=== PATIENT | female | born 1945 | race Caucasian/White ===

== ENCOUNTER 2023-09-29 10:16 | Inpatient (IN) ==
[2023-09-29] MEDS ORDERED: IOPAMIDOL 100 ML BOTTLE IV ONE (10:17)
[2023-09-29] MEDS ORDERED: MEPERIDINE 25 MG/ML VIAL IV ONE ×2 (10:34→11:59)
[2023-09-29] MEDS ORDERED: ONDANSETRON 4 MG/2 ML VIAL IV ONE ×2 (10:34→12:27)
[2023-09-29] MEDS ORDERED: 0.9 % SODIUM CHLORIDE 1,000 ML IV ONE (10:34)
[2023-09-29 11:28] LABS: Basophils # (Auto) 0.02 K/mcL (0.00-0.30); Basophils % (Auto) 0.1 % (0.0-2.0); Eosinophils # (Auto) 0.09 K/mcL (0.00-0.70); Eosinophils % (Auto) 0.6 % (0.0-7.0); Hematocrit 40.6 % (34.1-44.9); Hemoglobin 12.8 g/dL (11.2-15.7); Lymphocytes # (Auto) 1.31 K/mcL (1.50-4.80); Lymphocytes % (Auto) 9.2 % (15.5-49.0); Mean Cell Volume 84.1 fL (80.0-100.0); Mean Corpuscular HGB Conc 31.5 g/dL (31.0-36.0); Mean Platelet Volume 9.8 fL (8.8-12.5); Monocytes % (Auto) 9.1 % (1.0-12.0); Neutrophils % (Auto) 80.8 % (38.0-78.0); Platelet Count 358 K/mcL (140-440); RBC 4.83 M/mcL (3.59-5.38); Red Cell Distribution Width 13.2 % (11.5-14.5); WBC 14.2 K/mcL (4.5-11.0)
[2023-09-29] MEDS ORDERED: MEPERIDINE 50 MG/ML VIAL ONE (12:08)
[2023-09-29 12:19] LABS: ALT/SGPT < 5 U/L (<40); AST/SGOT 17 U/L (<32); Albumin 3.9 gm/dL (3.2-5.2); Albumin/Globulin Ratio 1.2 (1.0-2.3); Alkaline Phosphatase 139 U/L (39-117); Bilirubin,Total 0.8 mg/dL (0.1-1.0); Blood Urea Nitrogen 20 mg/dL (8-23); Carbon Dioxide 26 mmol/L (22-30); Chloride 102 mmol/L (96-108); Globulin 3.2 gm/dL (2.2-3.7); Glomerular Filtration Rate 84; Glucose 132 mg/dL (70-105)
[2023-09-29] MEDS ORDERED: PIPERACILLIN SODIUM/TAZOBACTAM 3.375 GM in DEXTROSE 5% IN WATER 50 ML IV ONE (13:09)
[2023-09-29] MEDS ORDERED: MEPERIDINE 50 MG/ML VIAL IV ONE (13:23)
[2023-09-29] MEDS: ONDANSETRON 4 MG/2 ML VIAL IV PRN ×2 (18:02→22:08)
[2023-09-29] MEDS: 0.9 % SODIUM CHLORIDE 1,000 ML IV SCH (18:02)
[2023-09-29] MEDS: MEPERIDINE 50 MG/ML VIAL IV PRN ×2 (18:02→22:08)
[2023-09-29] MEDS: METHYLNALTREXONE BROMIDE 12 MG/0.6 ML SYRINGE SQ SCH (18:49)
[2023-09-29] MEDS: PIPERACILLIN SODIUM/TAZOBACTAM 3.375 GM in DEXTROSE 5% IN WATER 100 ML IV SCH (18:54)
[2023-09-29] MEDS: ACETAMINOPHEN 1,000 MG/100 ML BAG IV SCH (20:02)
[2023-09-30] MEDS: PIPERACILLIN SODIUM/TAZOBACTAM 3.375 GM in DEXTROSE 5% IN WATER 100 ML IV SCH ×4 (00:50→22:17)
[2023-09-30] MEDS: ONDANSETRON 4 MG/2 ML VIAL IV PRN ×5 (02:07→22:06)
[2023-09-30] MEDS: ACETAMINOPHEN 1,000 MG/100 ML BAG IV SCH ×5 (02:54→19:04)
[2023-09-30] MEDS: 0.9 % SODIUM CHLORIDE 1,000 ML IV SCH ×2 (05:08→14:32)
[2023-09-30] MEDS: MEPERIDINE 50 MG/ML VIAL IV PRN ×5 (06:07→22:06)
[2023-09-30] MEDS: PANTOPRAZOLE 40 MG VIAL IV SCH ×2 (08:32→16:17)
[2023-09-30] MEDS: METHYLNALTREXONE BROMIDE 12 MG/0.6 ML SYRINGE SQ SCH (09:24)
[2023-09-30] MEDS ORDERED: MEPERIDINE 25 MG/ML VIAL IV ONE (10:06)
[2023-09-30] MEDS ORDERED: LORazepam 2 MG/ML VIAL IV PRN (20:21)
[2023-09-30] MEDS: METOPROLOL SUCCINATE 25 MG TAB.XL.24H PO SCH (22:06)
[2023-10-01] MEDS: 0.9 % SODIUM CHLORIDE 1,000 ML IV SCH ×3 (03:37→19:00)
[2023-10-01] MEDS: ACETAMINOPHEN 1,000 MG/100 ML BAG IV SCH ×4 (03:37→18:55)
[2023-10-01] MEDS: PIPERACILLIN SODIUM/TAZOBACTAM 3.375 GM in DEXTROSE 5% IN WATER 100 ML IV SCH ×3 (05:45→21:26)
[2023-10-01] MEDS: ONDANSETRON 4 MG/2 ML VIAL IV PRN ×5 (05:47→22:03)
[2023-10-01] MEDS: MEPERIDINE 50 MG/ML VIAL IV PRN ×5 (05:47→22:02)
[2023-10-01 07:02] LABS: Basophils # (Auto) 0.02 K/mcL (0.00-0.30); Basophils % (Auto) 0.2 % (0.0-2.0); Hematocrit 35.9 % (34.1-44.9); Hemoglobin 10.6 g/dL (11.2-15.7); Lymphocytes # (Auto) 1.31 K/mcL (1.50-4.80); Lymphocytes % (Auto) 15.3 % (15.5-49.0); Mean Cell Volume 89.5 fL (80.0-100.0); Mean Corpuscular HGB Conc 29.5 g/dL (31.0-36.0); Mean Platelet Volume 9.6 fL (8.8-12.5); Monocytes % (Auto) 5.8 % (1.0-12.0); Neutrophils % (Auto) 71.6 % (38.0-78.0); Platelet Count 278 K/mcL (140-440); RBC 4.01 M/mcL (3.59-5.38); WBC 8.6 K/mcL (4.5-11.0)
[2023-10-01 07:20] LABS: ALT/SGPT < 5 U/L (<40); AST/SGOT 16 U/L (<32); Albumin/Globulin Ratio 1.4 (1.0-2.3); Alkaline Phosphatase 97 U/L (39-117); Bilirubin,Direct 0.3 mg/dL (<0.3); Bilirubin,Total 0.7 mg/dL (0.1-1.0); Blood Urea Nitrogen 12 mg/dL (8-23); Calcium 8.7 mg/dL (8.6-10.4); Carbon Dioxide 18 mmol/L (22-30); Chloride 107 mmol/L (96-108); Globulin 2.2 gm/dL (2.2-3.7); Glomerular Filtration Rate 94; Glucose 70 mg/dL (70-105); Lactate Dehydrogenase 180 U/L (135-225); Phosphorous 2.1 mg/dL (2.5-4.5); Triglycerides 83 mg/dL (<150)
[2023-10-01] MEDS: METOPROLOL SUCCINATE 25 MG TAB.XL.24H PO SCH (07:38)
[2023-10-01] MEDS: PANTOPRAZOLE 40 MG VIAL IV SCH (07:39)
[2023-10-01] MEDS: METHYLNALTREXONE BROMIDE 12 MG/0.6 ML SYRINGE SQ SCH (14:27)
[2023-10-01] MEDS: DICYCLOMINE 20 MG TABLET PO SCH ×2 (16:21→21:27)
[2023-10-01] MEDS: PANTOPRAZOLE 40 MG TABLET PO SCH (16:21)
[2023-10-01] MEDS: levETIRAcetam 500 MG TABLET PO SCH (16:21)
[2023-10-01] MEDS: ZOLPIDEM 5 MG TABLET PO PRN (21:26)
[2023-10-02] MEDS: ACETAMINOPHEN 1,000 MG/100 ML BAG IV SCH ×4 (01:53→20:37)
[2023-10-02] MEDS: MEPERIDINE 50 MG/ML VIAL IV PRN ×6 (01:53→21:40)
[2023-10-02] MEDS: PIPERACILLIN SODIUM/TAZOBACTAM 3.375 GM in DEXTROSE 5% IN WATER 100 ML IV SCH ×3 (05:25→22:17)
[2023-10-02] MEDS: ONDANSETRON 4 MG/2 ML VIAL IV PRN ×5 (05:25→21:11)
[2023-10-02] MEDS: 0.9 % SODIUM CHLORIDE 1,000 ML IV SCH (05:41)
[2023-10-02 07:21] LABS: ALT/SGPT < 5 U/L (0-40); AST/SGOT 18 U/L (<32); Albumin 3.1 gm/dL (3.2-5.2); Albumin/Globulin Ratio 1.5 (1.0-2.3); Alkaline Phosphatase 93 U/L (39-117); Bilirubin,Direct < 0.2 mg/dL (0-0.3); Bilirubin,Total 0.4 mg/dL (0.1-1.0); Blood Urea Nitrogen 7 mg/dL (8-23); Carbon Dioxide 19 mmol/L (22-30); Chloride 108 mmol/L (96-108); Globulin 2.1 gm/dL (2.2-3.7); Glomerular Filtration Rate 88; Glucose 98 mg/dL (70-105); Lactate Dehydrogenase 194 U/L (135-225); Triglycerides 101 mg/dL (<150); Uric Acid 2.3 mg/dL (2.5-8.0)
[2023-10-02] MEDS ORDERED: LORazepam 1 MG TABLET PO PRN (08:06)
[2023-10-02] MEDS: DICYCLOMINE 20 MG TABLET PO SCH ×4 (09:22→20:35)
[2023-10-02] MEDS: METOPROLOL TARTRATE 25 MG TABLET PO SCH (09:22)
[2023-10-02] MEDS: levETIRAcetam 500 MG TABLET PO SCH (09:22)
[2023-10-02] MEDS: PANTOPRAZOLE 40 MG TABLET PO SCH ×2 (09:24→17:13)
[2023-10-02] MEDS ORDERED: SIMETHICONE 80 MG TAB.CHEW CHEWED PRN (14:32)
[2023-10-02] MEDS: POTASSIUM CHLORIDE 20 MEQ TABLET PO SCH (17:13)
[2023-10-02] MEDS: hydrALAZINE 20 MG/ML VIAL IV PRN (19:15)
[2023-10-02] MEDS: PHOSPHORUS 250 MG TABLET PO SCH (20:35)
[2023-10-02] MEDS: ZOLPIDEM 5 MG TABLET PO PRN (20:35)
[2023-10-03] MEDS: ACETAMINOPHEN 1,000 MG/100 ML BAG IV SCH ×5 (02:26→20:20)
[2023-10-03] MEDS: MEPERIDINE 50 MG/ML VIAL IV PRN ×5 (03:58→22:15)
[2023-10-03] MEDS: ONDANSETRON 4 MG/2 ML VIAL IV PRN ×4 (03:59→17:59)
[2023-10-03] MEDS: PIPERACILLIN SODIUM/TAZOBACTAM 3.375 GM in DEXTROSE 5% IN WATER 100 ML IV SCH ×3 (05:28→22:15)
[2023-10-03 07:12] LABS: ALT/SGPT < 5 U/L (<40); AST/SGOT 17 U/L (<32); Albumin/Globulin Ratio 1.5 (1.0-2.3); Alkaline Phosphatase 87 U/L (39-117); Bilirubin,Direct < 0.2 mg/dL (0-0.3); Bilirubin,Total 0.3 mg/dL (0.1-1.0); Blood Urea Nitrogen 5 mg/dL (8-23); Calcium 9.1 mg/dL (8.6-10.4); Carbon Dioxide 19 mmol/L (22-30); Chloride 107 mmol/L (96-108); Glomerular Filtration Rate 88; Glucose 107 mg/dL (70-105); Lactate Dehydrogenase 168 U/L (135-225); Phosphorous 1.7 mg/dL (2.5-4.5); Triglycerides 105 mg/dL (<150); Uric Acid 2.6 mg/dL (2.5-8.0)
[2023-10-03] MEDS: DICYCLOMINE 20 MG TABLET PO SCH ×4 (08:32→20:21)
[2023-10-03] MEDS: PHOSPHORUS 250 MG TABLET PO SCH ×3 (08:32→20:21)
[2023-10-03] MEDS: levETIRAcetam 500 MG TABLET PO SCH ×2 (08:32→08:39)
[2023-10-03] MEDS: METOPROLOL TARTRATE 25 MG TABLET PO SCH (08:32)
[2023-10-03] MEDS: POTASSIUM CHLORIDE 20 MEQ TABLET PO SCH ×3 (08:32→12:54)
[2023-10-03] MEDS: PANTOPRAZOLE 40 MG TABLET PO SCH ×2 (08:32→17:05)
[2023-10-03] MEDS ORDERED: IOPAMIDOL 100 ML BOTTLE IV ONE (11:05)
[2023-10-03] MEDS: hydrALAZINE 20 MG/ML VIAL IV PRN (14:13)
[2023-10-03] MEDS: POTASSIUM CHLORIDE 20 MEQ PACKET PO SCH (17:05)
[2023-10-03] MEDS: ZOLPIDEM 5 MG TABLET PO PRN (20:20)
[2023-10-04] MEDS: MEPERIDINE 50 MG/ML VIAL IV PRN ×4 (02:10→16:31)
[2023-10-04] MEDS: ACETAMINOPHEN 1,000 MG/100 ML BAG IV SCH ×3 (02:45→15:03)
[2023-10-04] MEDS: ONDANSETRON 4 MG/2 ML VIAL IV PRN ×3 (07:23→16:31)
[2023-10-04] MEDS: PIPERACILLIN SODIUM/TAZOBACTAM 3.375 GM in DEXTROSE 5% IN WATER 100 ML IV SCH ×2 (07:23→15:03)
[2023-10-04] MEDS: PANTOPRAZOLE 40 MG TABLET PO SCH ×2 (07:24→16:35)
[2023-10-04] MEDS: POTASSIUM CHLORIDE 20 MEQ PACKET PO SCH ×3 (07:24→16:34)
[2023-10-04] MEDS: levETIRAcetam 500 MG TABLET PO SCH (07:26)
[2023-10-04] MEDS: DICYCLOMINE 20 MG TABLET PO SCH ×3 (07:26→16:34)
[2023-10-04] MEDS: PHOSPHORUS 250 MG TABLET PO SCH (07:27)
[2023-10-04] MEDS: METOPROLOL TARTRATE 25 MG TABLET PO SCH (08:54)
== END 2023-10-04 19:06 | disposition home or self-care (01) ==
LOC: ED 10:16 → MEDSUR 10:16 → OBSVTOIN 17:35
PROVIDERS: ADMIT Family Medicine Adult Medicine; ATTEND Family Medicine Adult Medicine